=== PATIENT | male | born 1945 | race Caucasian/White ===

== ENCOUNTER 2016-09-12 19:02 | Emergency (ER) | payer OTHER ==
[2016-09-12 17:49] LABS: BASOPHILS 0.6 %; BASOPHILS ABSOLUTE 0.04 10/3/uL (0.0-0.16); EOSINOPHILS 0.9 %; EOSINOPHILS ABSOLUTE 0.06 10/3/uL (0.0-0.53); ER CBC TAT 0 Hrs 08 Mins; IMMATURE GRANULOCYTES 0.8 %; IMMATURE GRANULOCYTES ABSOLUTE 0.05 10/3/uL (0.0-0.11); LYMPHOCYTES 17.9 %; LYMPHOCYTES ABSOLUTE 1.13 10/3/uL (0.67-4.30); MEAN CORPUSCULAR HEMOGLOB 30.2 pg (26.0-34.0); MEAN PLATELET VOLUME 10.4 fL (9.2-13.0); MONOCYTES 8.9 %; MONOCYTES ABSOLUTE 0.56 10/3/uL (0.21-1.20); NEUTROPHILS 70.9 %; NEUTROPHILS ABSOLUTE 4.48 10/3/uL (2.02-8.40); RBC DISTRIBUTION WIDTH 13.1 % (12.0-16.0); WHITE BLOOD CELLS 6.3 10/3/uL (4.5-10.5)
[2016-09-12 17:54] LABS: HEMATOCRIT 42.3 % (40.0-51.0); HEMOGLOBIN 14.9 g/dL (13.6-17.8); MANUAL DIFF NO %; MEAN CORPUS HGB CONC 35.2 g/dL (32.0-36.0); MEAN CORPUSCULAR VOLUME 85.8 fL (80-100); PLATELET COUNT 213 10/3/uL (150-400); RED CELL COUNT 4.93 10/6/uL (4.7-6.1)
[2016-09-12 18:05] LABS: A/G RATIO 0.8 (0.7-1.9); ALBUMIN 3.1 G/DL (3.5-5.0); BUN (BLOOD UREA NITROGEN) 25 MG/DL (6-23); CHLORIDE, SERUM 99 MMOL/L (96-112); CO2 (CARBON DIOXIDE) 29 MMOL/L (24-34); CREATININE 2.12 MG/DL (0.70-1.30); GFR AFRICAN AMERICAN 35 ML/MIN (>=60); GFR NON AFRICAN AMERICAN 30 ML/MIN (>=60); GLOBULIN 3.7 G/DL (2.5-4.1); POTASSIUM, SERUM 4.5 MMOL/L (3.5-5.3); SGOT(AST) 21 U/L (5-40); SGPT(ALT) 36 U/L (5-65); TOTAL PROTEIN 6.8 G/DL (6.0-8.5); TROPONIN I 0.04 NG/ML (<0.05)
[2016-09-12 18:06] LABS: ALKALINE PHOSPHATASE 123 U/L (45-117); GLUCOSE, SERUM 323 MG/DL (60-99); SODIUM, SERUM 134 MMOL/L (135-148); TOTAL BILIRUBIN 0.7 MG/DL (0-1.2)
[~2016-09-12 19:02] MED LIST: AMB10 PO; ASAB PO; BUM1 PO; COZAAR100 MG PO; L40 PO; LEUCOVOR CA5 MG PO; LEVOTHROID125 MCG PO; LEVOTHYROXIN125 MCG PO; LOP25 PO; LOTE20 PO; LOZOLTAB PO; LUNESTA2 M1 PO; NORCO1 TA1 PO; NORV10 PO; NOVOLOG SC; NOVOPEN SC; PAXIL40 MG PO; PLAVIX PO; PRILO PO; PRIN20 PO; RESEARCH MED IJ; SODBICAR10 PO; VITAMIN D31000 UNIT PO; X5 PO; XANAX1 MG PO; [UNRECOGNIZED DRUG - OTHER] SC
[2016-09-12 19:09] LABS: ASCORBIC ACID (UR NOT ORDER) 20 (NEG); BILIRUBIN, URINE NEGATIVE (NEG); ER URINALYSIS TAT 0 Hrs 05 Mins; KETONE, URINE NEGATIVE (NEG); LEUKOCYTE ESTERASE(NOT OR NEG (NEG); NITRITE (URINE) NEG (NEG); WBC (NOT ORDERED) (RFLEX) 1 (0-5)
[2016-10-26] MEDS ORDERED: L20 PO (15:40)
[2016-10-26] MEDS ORDERED: KLOR-CON M1010 MEQ PO (15:40)
[2016-10-26] MEDS ORDERED: LIPITOR40 PO (15:40)
[2016-10-26] MEDS ORDERED: LANTUSCART SC (15:42)
[2016-10-26] MEDS ORDERED: ZANTAC150 MG PO (15:43)
== END 2016-09-12 20:19 | disposition home or self-care (01) ==
LOC: ER 19:02
PROVIDERS: Emergency Medicine
DX: E11.65 Type 2 diabetes mellitus with hyperglycemia (principal); E78.5 Hyperlipidemia, unspecified; I25.2 Old myocardial infarction; N18.9 Chronic kidney disease, unspecified; K21.9 Gastro-esophageal reflux disease without esophagitis; G47.30 Sleep apnea, unspecified; Z85.828 Personal history of other malignant neoplasm of skin; Z95.1 Presence of aortocoronary bypass graft; Z79.899 Other long term (current) drug therapy; Z79.82 Long term (current) use of aspirin; Z79.4 Long term (current) use of insulin
CPT/HCPCS: 71010; 80053; 81001; 82962; 83690; 84484; 85025; 87040; 93005; 96374; 99285; A9270-GY